=== PATIENT | male | born 1955 | race Caucasian/White ===

== ENCOUNTER 2018-03-13 06:08 | Day surgery (SDC) | payer OTHER ==
[~2018-03-13] VITALS: Ht 175.3 cm; Wt 81.7 kg
[~2018-03-13 06:08] MED LIST: ASPI81CH; Aspirin EC81 MG PO; CHLO25B; CHLO25B PO; CHOL10002; CITA20; CITA20 PO; GLIP10ER; IBUP800 PO; LEVFLO500 PO; METF500 PO; METF500C PO; NIAC500; OXYACE5T PO; Prilosec Otc20 MG PO; ROSU10TA; Simvastatin20 MG; TAMS.4ER; UBID10; Zocor20 MG PO
== END 2018-03-13 10:05 | disposition home or self-care (01) ==
LOC: ORSCMMR 06:08 → ORD 07:30 → ORSCMMR 07:30
PROVIDERS: Surgery
PROC: 0DTJ4ZZ Resection of Appendix, Percutaneous Endoscopic Approach (ICD-10-PCS; principal; 2018-03-13 07:30)
DX: R93.5 Abnormal findings on diagnostic imaging of other abdominal regions, including retroperitoneum (principal); E11.9 Type 2 diabetes mellitus without complications; E78.5 Hyperlipidemia, unspecified; Z79.899 Other long term (current) drug therapy
CPT/HCPCS: 82947; 88304; 88342; J0295; J0330; J2250; J2370; J2710; J3010; J7120

== ENCOUNTER 2019-11-11 04:55 | Emergency (ER) | payer OTHER ==
[~2019-11-11] VITALS: Ht 175.3 cm; Wt 79.4 kg
[2019-11-11] MEDS ORDERED: CHLO25B PO (05:29)
[2019-11-11 05:43] LABS: Source, Urine Clean Catch
[2019-11-11 05:48] LABS: BASOPHILS ABSOLUTE AUTO 0.04 K/mm3 (0.00-0.23); BASOPHILS PERCENT AUTO 0 % (0-2); EOSINOPHILS ABSOLUTE AUTO 0.11 K/mm3 (0.00-0.68); EOSINOPHILS PERCENT AUTO 1 % (0-6); Hematocrit 42.3 % (37.0-53.0); IMMATURE GRAN ABSOLUTE AUTO 0.04 K/mm3 (0.00-0.10); IMMATURE GRAN PERCENT AUTO 0 % (0-1); LYMPHOCYTES PERCENT AUTO 15 % (21-46); MONOCYTES ABSOLUTE AUTO 0.59 K/mm3 (0.16-1.47); MONOCYTES PERCENT AUTO 5 % (4-13); Mean Corpuscular HGB 31.7 pg (26.0-34.0); Mean Corpuscular HGB Conc 33.1 g/dL (31.5-36.5); Mean Corpuscular Volume 96 fL (80-100); Mean Platelet Volume 8.9 fL (9.1-12.4); NEUTROPHILS ABSOLUTE AUTO 8.54 K/mm3 (1.96-9.15); NEUTROPHILS PERCENT AUTO 78 % (41-73); Platelet Count 220 K/mm3 (150-400); RDW Coefficient Variation 11.6 % (11.7-14.2); RDW Standard Deviation 40.8 fL (35.1-46.3); Red Blood Cell Count 4.41 M/mm3 (4.30-5.90); White Blood Cell Count 10.92 K/mm3 (4.00-11.30)
[2019-11-11 05:49] LABS: Blood, Urine 5+ (Neg); Glucose Qualitative, Urine Neg (Neg); Ketones, Urine 1+ (Neg); Leukocyte Esterase, Urine 1+ (Neg); Nitrite, Urine Pos (Neg); Protein, Urine 3+ (Neg); Specific Gravity, Urine 1.025 (1.003-1.022); Urobilinogen, Urine NORM (Normal)
[2019-11-11 05:55] LABS: Appearance, Urine Turbid (Clear); Bilirubin, Urine 1+ (Neg); Color, Urine Brown (P-Yellow)
[2019-11-11 05:58] LABS: Red Blood Cells, Urine TNTC /hpf (0-2)
[2019-11-11 06:00] LABS: Bacteria Mod /hpf; Calcium Oxalate Crystals Few /hpf; Squamous Epithelial Cells Rare /hpf (Few)
[2019-11-11 06:02] LABS: Yeast/Fungi Urine Few /hpf
[2019-11-11 06:16] LABS: Alanine Aminotransfer (ALT/SGP 30 U/L (12-78); Albumin, Blood 3.8 g/dL (3.4-5.0); Albumin/Globulin Ratio 1.3 (0.8-1.8); Alk Phos 68 U/L (50-136); Anion Gap 7 mmol/L (6-16); Aspartate Aminotrans (AST/SGOT 19 U/L (12-37); Bilirubin, Total 0.3 mg/dL (0.1-1.0); Blood Urea Nitrogen 24 mg/dL (8-24); Bun/Creatinine Ratio 28.2 (12.0-20.0); CO2, Blood 27 mmol/L (21-32); Calcium, Blood 8.6 mg/dL (8.5-10.1); Chloride, Blood 108 mmol/L (98-108); Creatinine, Blood 0.85 mg/dL (0.60-1.20); Glomerular Filtration Rate >60 (60-); Glucose, Blood 140 mg/dL (70-99); Magnesium, Blood 2.3 mg/dL (1.6-2.4); Potassium, Blood 4.3 mmol/L (3.5-5.5); Sodium, Blood 142 mmol/L (136-145); Total Protein, Blood 6.8 g/dL (6.4-8.2)
[2019-11-11] MEDS ORDERED: Percocet 5-3251 EACH PO (06:47)
[2019-11-11] MEDS ORDERED: Zofran4 MG PO (06:47)
[2019-11-11] MEDS ORDERED: Cipro500 MG PO (06:47)
[2019-11-11] MEDS ORDERED: Flomax0.4 MG PO (06:47)
== END 2019-11-11 07:34 | disposition home or self-care (01) ==
LOC: ER 04:55
PROVIDERS: Emergency Medicine
DX: N21.1 Calculus in urethra (principal); E11.9 Type 2 diabetes mellitus without complications; K21.9 Gastro-esophageal reflux disease without esophagitis; E78.5 Hyperlipidemia, unspecified; Z88.8 Allergy status to other drugs, medicaments and biological substances; Z79.84 Long term (current) use of oral hypoglycemic drugs; Z79.899 Other long term (current) drug therapy; Z79.82 Long term (current) use of aspirin
CPT/HCPCS: 36415; 74176; 80053; 81001; 83690; 83735; 85025; 87086; 96365; 96375; 99284-25; J0696; J1170; J1885; J2405; J7030

== ENCOUNTER 2021-12-30 07:36 | Day surgery (SDC) | payer MEDICARE, BC ==
[~2021-12-30] VITALS: Ht 175.3 cm; Wt 81.5 kg
[~2021-12-30 07:36] MED LIST changes: +Cipro500 MG PO; +Flomax0.4 MG PO; +Percocet 5-3251 EACH PO; +Zofran4 MG PO
--- NOTE | 2021-12-30 08:03 | NUR ---
ADMITTED TO UNIT TODAY ADMISSION STARTED. Ambulatory in Day Surgery. History, Chart, Medications and Allergies reviewed before start of procedure. Patient confirms NPO status and agrees with scheduled surgery.
--- NOTE | 2021-12-30 08:48 | NUR ---
12/30/21 0848 DOROTEO SOW History, Chart, Medications and Allergies reviewed before start of procedure. Patient confirms NPO status and agrees with scheduled surgery. 3-LEAD EKG REVIEWED WITH PHYSICIAN PRIOR TO START OF PROCEDURE. MONITOR INTACT WITH CONTINUOUS PULSE OXIMETRY AND INTERMITTENT BP. PATIENT DETERMINED TO BE ASA APPROPRIATE FOR PROPOFOL SEDATION PRIOR TO START OF PROCEDURE BY . O2 VIA NASAL CANULA
--- NOTE | 2021-12-30 09:36 | NUR ---
Patient up to Ambulate independently. Gait steady. Discharge instructions reviewed with patient. Patient verbalizes understanding. Copy given to patient to take home. Discharged via wheelchair to private car for ride home WITH
== END 2021-12-31 22:22 | disposition home or self-care (01) ==
LOC: ORSCMMR 07:36 → ORD 08:30 → ORSCMMR 12-31 22:22
PROVIDERS: Internal Medicine Gastroenterology
PROC: 0DBH8ZX Excision of Cecum, Via Natural or Artificial Opening Endoscopic, Diagnostic (ICD-10-PCS; principal; 2021-12-30 08:30)
DX: Z12.11 Encounter for screening for malignant neoplasm of colon (principal); Z86.010 Personal history of colon polyps; D12.0 Benign neoplasm of cecum; E11.9 Type 2 diabetes mellitus without complications; E78.00 Pure hypercholesterolemia, unspecified; I10 Essential (primary) hypertension; K21.9 Gastro-esophageal reflux disease without esophagitis; Z79.84 Long term (current) use of oral hypoglycemic drugs; Z79.899 Other long term (current) drug therapy; Z79.82 Long term (current) use of aspirin
CPT/HCPCS: 82947; 88305; J2704; J7120

== ENCOUNTER 2022-04-13 17:54 | Emergency (ER) | payer MEDICARE, BC ==
[~2022-04-13] VITALS: Ht 175.3 cm; Wt 79.4 kg
[2022-04-13] MEDS ORDERED: ONDA4ODT MM (20:28)
[2022-04-13] MEDS ORDERED: BENZ100A PO (20:28)
== END 2022-04-14 00:40 | disposition home or self-care (01) ==
LOC: ER 17:54
DX: U07.1 COVID-19 (principal); J11.1 Influenza due to unidentified influenza virus with other respiratory manifestations; E11.9 Type 2 diabetes mellitus without complications
CPT/HCPCS: 96374; 99283-25; J1885; M0222

== ENCOUNTER 2023-01-07 10:57 | Emergency (ER) | payer MEDICARE, BC ==
[~2023-01-07] VITALS: Ht 175.3 cm; Wt 79.4 kg
[~2023-01-07 10:57] MED LIST changes: +BENZ100A PO; +ONDA4ODT MM
[2023-01-07] MEDS ORDERED: IBUP800 PO (12:48)
[2023-01-07] MEDS ORDERED: LIDO700A20 TOP (12:48)
== END 2023-01-07 13:10 | disposition home or self-care (01) ==
LOC: ER 10:57
DX: M54.50 Low back pain, unspecified (principal); G89.29 Other chronic pain; E11.9 Type 2 diabetes mellitus without complications; K21.9 Gastro-esophageal reflux disease without esophagitis; E78.5 Hyperlipidemia, unspecified; Z79.899 Other long term (current) drug therapy; Z79.84 Long term (current) use of oral hypoglycemic drugs
CPT/HCPCS: A9270; J1885

== ENCOUNTER 2023-02-17 07:35 | Day surgery (SDC) | payer MEDICARE, BC ==
[~2023-02-17] VITALS: Ht 175.3 cm; Wt 80.2 kg
[~2023-02-17 07:35] MED LIST changes: +LIDO700A20 TOP
[2023-02-17] MEDS ORDERED: HYDCOR10 (07:50)
[2023-02-17] MEDS ORDERED: CHLO25B (07:50)
[2023-02-17] MEDS ORDERED: POTCIT10 (07:51)
[2023-02-17] MEDS ORDERED: Vitamin C100 M1 (07:51)
[2023-02-17] MEDS ORDERED: METF500 (07:51)
[2023-02-17] MEDS ORDERED: ROSU5 (07:51)
== END 2023-02-17 09:14 | disposition home or self-care (01) ==
LOC: ORSCSDS 07:35
PROVIDERS: Internal Medicine Gastroenterology
PROC: 0DB68ZX Excision of Stomach, Via Natural or Artificial Opening Endoscopic, Diagnostic (ICD-10-PCS; principal; 2023-02-17 08:45)
DX: K21.9 Gastro-esophageal reflux disease without esophagitis (principal); K31.7 Polyp of stomach and duodenum; K44.9 Diaphragmatic hernia without obstruction or gangrene; E11.9 Type 2 diabetes mellitus without complications; E78.5 Hyperlipidemia, unspecified; Z79.82 Long term (current) use of aspirin; Z79.84 Long term (current) use of oral hypoglycemic drugs; Z79.899 Other long term (current) drug therapy
CPT/HCPCS: 82947; 88305; 88342; J2704; J7120

== ENCOUNTER → 2025-11-11 | Outpatient (CLI) | payer MEDICARE, BC ==
[~2025-11-11] MED LIST changes: +HYDCOR10; +METF500; +POTCIT10; +ROSU5; +Vitamin C100 M1
== END | disposition home or self-care (01) ==
LOC: LAB SHORT 08:30 → LAB 08:30
DX: Z09 Encounter for follow-up examination after completed treatment for conditions other than malignant neoplasm (principal); Z87.442 Personal history of urinary calculi
CPT/HCPCS: 81050